=== PATIENT | male | born 1950 | race Caucasian/White ===

== ENCOUNTER → 2021-09-01 12:18 | Outpatient (BNVA) | payer OTHER, SELFPAY | PROVIDERS: Family Provider Family Medicine; PCP Family Medicine; Visit Provider Orthopaedic Surgery | DX: M71.10 Other infective bursitis, unspecified site (principal); Z01.812 Encounter for preprocedural laboratory examination; Z20.822 Contact with and (suspected) exposure to COVID-19 | CPT/HCPCS: 87635 ==

== ENCOUNTER 2021-09-04 12:17 | Day surgery (SDC) | payer MEDICARE, SELFPAY ==
[2021-09-01 14:31] VITALS: BMI 31.3
[2021-09-04] VITALS (12 sets, daily range): BP systolic 160–175; BP diastolic 92–117; PULSE 68–82; RESP 16–24; TEMP 36.1–36.4; O2SAT 93–100
[2021-09-04] MEDS: sodium chloride 0.9% 1,000 ML 30 ML IV (13:17)
--- NOTE | 2021-09-04 13:35 | ECG_ITS ---
[facility] Test Date: 2021-09-04 Pat Name: Naman Landers Department: Room: Gender: Male Director Of Market Intelligence: : 1950 Requested By: Dale Lock Order Number: [id number] Han MD: GONZALEZ GOODWIN Measurements Intervals [place] Rate: 71 P: 27 NH: 154 QRS: 3 QRSD: 99 T: 16 QT: 413 QTc: 452 Interpretive Statements SINUS RHYTHM WITH SINUS ARRHYTHMIA No previous ECG available for comparison Electronically Signed On 09-04-2021 20:23:10 CDT by GONZALEZ GOODWIN [email or web address]
--- NOTE | 2021-09-04 14:23 | P.ANESASSM_ITS ---
Pre-Anesthetic Assessment Pre-Anesthetic Assessment: Height/Weight: Height 1.68 m Weight 87.997 kg Temp Pulse Resp BP Pulse Ox 97.6 F 76 18 161/106 96 09/04/21 13:11 09/04/21 13:11 09/04/21 13:11 09/04/21 13:11 09/04/21 13:11 Preop Diagnosis: Septic bursitis right knee Proposed Procedure: Operation Date: 09/04/21 13:45 Proposed Procedures p Knee Bursectomy Right 92650 M70.4(Right) - Ariel Carr MD Was Beta Essence taken within 24 hours: N/A Last intake: Intake Last Liquid Date 09/04/21 Last Liquid Time 09:30 Last Solid Date 09/03/21 Last Solid Time 20:00 Social: Social History: Tobacco and No alcohol Exam: Pre-Anes Outpt Exam: alert, oriented x 3 and regular rate & rhythm Airway: Submandibular: WNL Cervical ROM: WNL MP: 2 Dentition: False Additional comments: [facility]: Pulmonary: COPD Anesthetic Plan: ASA status: 3 Anesthesia: General Risk of > 500 ml bl ood loss (7ml/kg in children): No Meds/Allergies Current Medications: Current Medications Generic Name Dose Route Start Last Admin Trade Name Freq PRN Reason Stop Dose Admin Sodium Chloride 1,000 mls @ 30 ml s/hr 09/04/21 13:15 09/04/21 13:17 Sodium Chloride 0.9% IV 09/05/21 13:14 30 mls/hr .Q24H JAY Administration PFSH Anesthesia PFSH: Social History (Updated 05/10/21 @ 13:30 by Elen Sarmiento LPN) Smoking and tobacco status: current every day smoker Second hand smoke exposure: No Smoking risk assessment/counseling performed?: No Alcohol intake: never Desire information about alcohol rehabilitation?: No Counseling given: No Desire information about substance/drug rehabilitation?: No Counseling given: No Data Anesthesia Cardiac Studies: No Data to Display
--- NOTE | 2021-09-04 14:34 | P.HP_ITS ---
Same Day Surgery H&P Indication for Procedure/HPI DATE OF PROCEDURE: September 04, 2021 CHIEF COMPLAINT/INDICATIONFOR SURGICAL PROCEDURE: Infected bursitis right knee PREOP DIAGNOSIS: Septic bursitis right knee PLANNED PROCEDRUE: Operation Date: 09/04/21 13:45 Proposed Procedures p Knee Bursectomy Right 87965 M70.4(Right) - Ariel Carr MD The patient is a 71-year-old male who last month he began developing erythema and pain and swelling over his right anterior knee. He was initially seen in the [facility] and begun on Augmentin and doxycycline. By he was clear he was not getting malika any contacted the treating physician.. He was seen again in the same clinic and orthopedic consultation was obtained. I was shown photographs and a decision was made that this would need to be addressed surgically with debridement and bursal excision. He denies any trauma to the area. He denies any open wounds or unusual activity. Medications/Allergies* Allergies/Adverse Reactions Allergy/AdvReac Type Severity Reaction Status Date / Time Sulfa (Sulfonamide Allergy ADR-Itching Verified 09/04/21 13:54 Antibiotics) Current Medications: Generic Name Dose Route Start Last Admin Trade Name Freq PRN Reason Stop Dose Admin Sodium Chloride 1,000 mls @ 30 mls/hr 09/04/21 13:15 09/04/21 13:17 Sodium Chloride 0.9% IV 09/05/21 13:14 30 mls/hr .Q24H JAY Administration Pertinent History/Comorbid Conditions* Social History Smoking and tobacco status: current every day smoker Second hand smoke exposure: No Smoking risk assessment/counseling performed?: No Alcohol intake: never Desire information about alcohol rehabilitation?: No Counseling given: No Desire information about substance/drug rehabilitation?: No Counseling given: No Pertinent Exam Findings alert, oriented x 3, clear to auscultation bilaterally, regular rate & rhythm and operative site marked On examination the patient's right knee there is erythema over the anterior prepatellar knee. Over the medial patella there is area of bursal induration and a central area of at least superficial necrosis. He has no knee effusion. Motion is from full extension to 120 degrees. He has a palpable right dorsalis pedis pulse. He will flex extend his toes and his ankle without any motor deficits. Recommendations Surgery/Procedure today Other Plans: The patient is failing to respond to oral antibiotics. I told him that infected prepatellar bursitis can be difficult if not impossible to cure with antibiotics alone. I think it was his failure to respond to oral antibiotics the best option would be surgical excision of the bursa and a debridement of necrotic skin. Will obtain intraoperative deep cultures. He will be discharged home on the same antibiotic. I will follow up with him in 2 weeks. Coding Level of Care Code Acute Endless Bed Drum Sander for Katie Phillip
--- NOTE | 2021-09-04 15:43 | ANE.PACU2 ---
Inpatient post-anesthesia follow up: Airway intact: Yes Vital signs: Temperature 97.0 F Pulse Rate 75 Respiratory Rate 20 Blood Pressure 173/111 Pulse Oximetry 96 Oxygen Delivery Me thod Room Air Oxygen Flow Rate 2 Fraction of Inspir ed Oxygen Hydration adequate: Yes Nausea and vomiting: No Pain level: 2 Mental status: Baseline
[2021-09-04] MEDS: HYDROmorphone 1 mg/mL INJ 1 mL 0.5 MG IVP ×2 (15:44→15:54)
--- NOTE | 2021-09-04 15:53 | PM.OP ---
Operative Report Date of procedure: September 04, 2021 Pre-op Diagnosis: Septic bursitis right knee Post-op diagnosis: same Post-op Findings: same Procedure Done: Excision infected right prepatellar bursa Specimens removed/disposition: Bursal tissue was sent for Gram stain and culture Surgeon: Ariel Carr Anesthesia: General Estimated blood loss (mL): 20 Findings: The patient had erythema and swelling over his medial right prepatellar bursa with densely indurated bursal tissue. No obvious purulence or necrotic tissue was identified. He had a very superficial area of eschar approximately 1 cm diameter overlying the area of swelling Condition: stable Disposition: PACU Brief History: Mr. Landers had persistent erythema and swelling over his anterior medial knee consistent with a prepatellar bursitis and had failed to respond to oral antibiotics. He was taken to the operating room for surgical debridement and removal of the infected prepatellar bursa Procedure: Mr. Landers was taken the operating room and given a general anesthesia. Prepped and draped the supine position. A timeout was performed. Initially a longitudinal incision approximately 4 cm long was made over the area of erythematous swelling. The area of a superficial eschar was removed with a lap sponge. Indurated bursal tissue was identified. No formal areas of purulence were noted. Utilizing scissors the inflamed bursal tissue was removed leaving stable healthy appearing margins. The wound was irrigated with saline. The skin edges were approximated with interrupted 2-0 Prolene suture. Xeroflo gauze 4 x 4's web roll and Surya wrap and a knee immobilizer were applied. The patient was extubated and taken to recovery room in stable condition.
[2021-09-04] MEDS: HYDROcodone-acetaminophen 5-325 mg Tablet 1 TAB PO (16:41)
== END 2021-09-04 17:25 | disposition home or self-care (01) ==
PROVIDERS: PCP Family Medicine; Visit Provider Orthopaedic Surgery
PROC: (CPT 29870; principal; 2021-09-04 13:40)
DX: M70.41 Prepatellar bursitis, right knee (principal); J44.9 Chronic obstructive pulmonary disease, unspecified; F17.210 Nicotine dependence, cigarettes, uncomplicated
CPT/HCPCS: 27340; 87070; 87075; 87077; 87186; 87205; 93005; J1170; J2704; J3010; J7030

== ENCOUNTER → 2023-05-30 13:56 | Outpatient (BNVA) | payer MEDICARE, SELFPAY | PROVIDERS: PCP Family Medicine; Visit Provider Nurse Practitioner | DX: I10 Essential (primary) hypertension (principal) | CPT/HCPCS: 80053 ==

== ENCOUNTER → 2025-11-30 15:14 | Outpatient (BNVA) | payer MEDICARE, SELFPAY | PROVIDERS: PCP Nurse Practitioner Family; Visit Provider Nurse Practitioner Family | DX: I10 Essential (primary) hypertension (principal); F17.200 Nicotine dependence, unspecified, uncomplicated | CPT/HCPCS: 80053; 80061; 85025 ==